=== PATIENT | female | born 2000 | race Two or more races ===

== ENCOUNTER 2025-03-26 11:05 | Emergency (ER) | payer SELFPAY ==
[2025-03-26 11:06] VITALS: BP 108/67
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
[2025-03-26] MEDS: MOTRIN 600 MG PO (11:33)
[2025-03-26] MEDS: TYLENOL 650 MG PO (11:33)
[2025-03-26 12:01] VITALS: BP 100/55
[2025-03-26 12:04] VITALS: BP 100/55
== END 2025-03-26 13:11 | disposition home or self-care (01) ==
LOC: EMR 11:05
PROVIDERS: EMERGENCY PHYSICIAN Emergency Medicine
DX: S39.012A Strain of muscle, fascia and tendon of lower back, initial encounter (principal); V49.59XA Passenger injured in collision with other motor vehicles in traffic accident, initial encounter; Y92.410 Unspecified street and highway as the place of occurrence of the external cause
CPT/HCPCS: 99283; 72110